=== PATIENT | male | born 1955 ===

== ENCOUNTER 2025-07-13 10:05 | Inpatient (IN) | payer OTHER, BC ==
[2025-07-13 10:16] VITALS: BMI 21.7
[2025-07-13 11:33] LABS: ABSOLUTE IMMATURE GRANULOCYTES 0.01 x10^3/uL (0.0-0.031); BASOPHILS # 0.03 x10^3/uL (0.01-0.08); EOSINOPHIL % 7.7 % (0.8-7.0); EOSINOPHILS # 0.38 x10^3/uL (0.04-0.54); MCHC 32.8 g/dl (32.3-36.5); MEAN CELL VOLUME 91.3 fl (79.0-92.2); MEAN PLT VOLUME 8.4 fl (9.4-12.4); MONOCYTE # 0.39 x10^3/uL (0.30-0.82); MONOCYTE % 7.9 % (5.3-12.2); RDW 13.0 % (12.2-16.6)
[2025-07-13 11:45] LABS: INR 1.17 (0.83-1.09); PROTHROMBIN TIME (PATIENT) 12.7 SEC (9.7-13.0)
[2025-07-13 11:47] LABS: ACTIVATED PTT 42.2 SECONDS (25.2-36.5)
[2025-07-13 12:33] LABS: ERYTHROCYTE SEDIMENTATION RATE 60 mm/hr (0-20)
[2025-07-13 12:52] LABS: ALK PHOS 119.0 U/L (40-150); CO2 28.0 mmol/L (21-32); CREATININE 0.53 mg/dL (0.55-1.3); GLUCOSE,RANDOM 173.0 mg/dL (74-106); SGOT/AST 15.0 U/L (5-34); SGPT/ALT 10.0 U/L (0-55); TOT PROT 6.4 g/dl (6.4-8.2)
[2025-07-13] MEDS ORDERED: ALBUTEROL SO4 2.5/IPRATROPIUM 0.5 INH SOL 3 ML VIAL.NEB. NEB PRN (14:45)
[2025-07-13] MEDS ORDERED: SENNOSIDES 8.6MG TABLET (FP) PO PRN (14:45)
[2025-07-13] MEDS: GABAPENTIN 300 MG CAPSULE PO SCH (16:36)
[2025-07-13] MEDS: BACLOFEN 10 MG TABLET (FP) PO SCH (18:17)
[2025-07-13] MEDS: ACETAMINOPHEN 325 MG TABLET (FP) PO PRN (18:20)
[2025-07-13] MEDS: MELATONIN 5 MG TABLETS PO SCH (21:27)
[2025-07-13] MEDS: traZODone HCL 50 MG TABLET (FP) PO SCH (21:27)
[2025-07-13] MEDS: MIRTAZAPINE 15 MG TABLET (FP) PO SCH (21:27)
[2025-07-13] MEDS: PREGABALIN 100 MG CAPSULE PO SCH (21:28)
[2025-07-14] MEDS ORDERED: LIDOCAINE HCL 1%, 10 MG/ML (20ML VIAL) ONE (07:32)
[2025-07-14] MEDS ORDERED: BUPIVACAINE HCL/PF 0.5% (5MG/ML) 10 ML VIAL ONE (07:33)
[2025-07-14] MEDS ORDERED: MIDAZOLAM HCL 2 MG/2 ML SINGLE DOSE VIAL ONE (07:52)
[2025-07-14] MEDS: LIDOCAINE HCL 1%, 10 MG/ML (20ML VIAL) INF ONE (08:00)
[2025-07-14] MEDS: BUPIVACAINE HCL/PF 0.5% (5MG/ML) 10 ML VIAL IJ ONE (08:00)
[2025-07-14 10:12] LABS: ABSOLUTE IMMATURE GRANULOCYTES 0.01 x10^3/uL (0.0-0.031); BASOPHILS # 0.04 x10^3/uL (0.01-0.08); EOSINOPHIL % 5.8 % (0.8-7.0); EOSINOPHILS # 0.22 x10^3/uL (0.04-0.54); MCHC 33.1 g/dl (32.3-36.5); MEAN CELL VOLUME 90.8 fl (79.0-92.2); MEAN PLT VOLUME 8.7 fl (9.4-12.4); MONOCYTE # 0.24 x10^3/uL (0.30-0.82); MONOCYTE % 6.4 % (5.3-12.2); RDW 12.8 % (12.2-16.6)
[2025-07-14 11:01] LABS: GLUCOSE,RANDOM 135.0 mg/dL (74-106)
[2025-07-14 11:03] LABS: CO2 30.0 mmol/L (21-32)
[2025-07-14 11:07] LABS: CREATININE 0.47 mg/dL (0.55-1.3)
[2025-07-14] MEDS ORDERED: SENNOSIDES 8.6MG TABLET (FP) PO PRN (11:30)
[2025-07-14] MEDS ORDERED: ALBUTEROL SO4 2.5/IPRATROPIUM 0.5 INH SOL 3 ML VIAL.NEB. NEB PRN (11:30)
[2025-07-14] MEDS: GABAPENTIN 300 MG CAPSULE PO SCH (14:38)
[2025-07-14] MEDS: BACLOFEN 10 MG TABLET (FP) PO SCH (14:38)
[2025-07-14] MEDS: ACETAMINOPHEN 325 MG TABLET (FP) PO PRN (15:05)
[2025-07-14] MEDS: CEFTRIAXONE 2 GM in DEXTROSE 5%-WATER 100 ML IVPB SCH (15:43)
[2025-07-14] MEDS: PREGABALIN 100 MG CAPSULE PO SCH (21:50)
[2025-07-14] MEDS: MELATONIN 5 MG TABLETS PO SCH (21:51)
[2025-07-14] MEDS: traZODone HCL 50 MG TABLET (FP) PO SCH (21:51)
[2025-07-14] MEDS: MIRTAZAPINE 15 MG TABLET (FP) PO SCH (21:51)
[2025-07-15 07:40] LABS: ABSOLUTE IMMATURE GRANULOCYTES 0.01 x10^3/uL (0.0-0.031); BASOPHILS # 0.05 x10^3/uL (0.01-0.08); EOSINOPHIL % 4.7 % (0.8-7.0); EOSINOPHILS # 0.23 x10^3/uL (0.04-0.54); MCHC 32.5 g/dl (32.3-36.5); MEAN CELL VOLUME 92.5 fl (79.0-92.2); MEAN PLT VOLUME 8.3 fl (9.4-12.4); MONOCYTE # 0.39 x10^3/uL (0.30-0.82); MONOCYTE % 8.0 % (5.3-12.2); RDW 13.0 % (12.2-16.6)
[2025-07-15 09:15] LABS: ALK PHOS 111.0 U/L (40-150); CO2 31.0 mmol/L (21-32); CREATININE 0.55 mg/dL (0.55-1.3); GLUCOSE,RANDOM 138.0 mg/dL (74-106); SGOT/AST 10.0 U/L (5-34); SGPT/ALT 9.0 U/L (0-55); TOT PROT 6.7 g/dl (6.4-8.2)
[2025-07-15] MEDS: AMINO ACIDS/PROTEIN HYDROLYS 30 ML LIQUID.PKT PO SCH (17:04)
[2025-07-16 07:59] LABS: ABSOLUTE IMMATURE GRANULOCYTES 0.01 x10^3/uL (0.0-0.031); BASOPHILS # 0.04 x10^3/uL (0.01-0.08); EOSINOPHIL % 5.2 % (0.8-7.0); EOSINOPHILS # 0.27 x10^3/uL (0.04-0.54); MCHC 32.0 g/dl (32.3-36.5); MEAN CELL VOLUME 91.8 fl (79.0-92.2); MEAN PLT VOLUME 8.7 fl (9.4-12.4); MONOCYTE # 0.43 x10^3/uL (0.30-0.82); MONOCYTE % 8.3 % (5.3-12.2); RDW 13.0 % (12.2-16.6)
[2025-07-16 08:42] LABS: GLUCOSE,RANDOM 131.0 mg/dL (74-106)
[2025-07-16 08:43] LABS: TOT PROT 6.6 g/dl (6.4-8.2)
[2025-07-16 08:45] LABS: ALK PHOS 108.0 U/L (40-150)
[2025-07-16 08:48] LABS: SGOT/AST 13.0 U/L (5-34); SGPT/ALT 7.0 U/L (0-55)
[2025-07-16 08:49] LABS: CREATININE 0.58 mg/dL (0.55-1.3)
[2025-07-16 08:51] LABS: CO2 24.0 mmol/L (21-32)
[2025-07-16] MEDS: LIDOCAINE HCL 1%, 10 MG/ML (20ML VIAL) SQ ONE (08:56)
[2025-07-16 09:16] VITALS: RESP 18
[2025-07-16] MEDS: ASCORBIC ACID 500 MG TABLET (FP) PO SCH (10:15)
[2025-07-16] MEDS: DOXYCYCLINE HYCLATE 100 MG TABLET PO SCH (18:12)
[2025-07-16] MEDS: CLOBETASOL PROPIONATE 15 GM OINTMENT TP SCH (21:49)
[2025-07-17 08:54] LABS: ABSOLUTE IMMATURE GRANULOCYTES 0.01 x10^3/uL (0.0-0.031); BASOPHILS # 0.05 x10^3/uL (0.01-0.08); EOSINOPHIL % 4.9 % (0.8-7.0); EOSINOPHILS # 0.22 x10^3/uL (0.04-0.54); MCHC 32.3 g/dl (32.3-36.5); MEAN CELL VOLUME 92.3 fl (79.0-92.2); MEAN PLT VOLUME 8.6 fl (9.4-12.4); MONOCYTE # 0.37 x10^3/uL (0.30-0.82); MONOCYTE % 8.2 % (5.3-12.2); RDW 13.1 % (12.2-16.6)
[2025-07-17 09:41] LABS: GLUCOSE,RANDOM 141.0 mg/dL (74-106)
[2025-07-17 09:42] LABS: TOT PROT 6.6 g/dl (6.4-8.2)
[2025-07-17 09:43] LABS: CO2 28.0 mmol/L (21-32)
[2025-07-17 09:44] LABS: ALK PHOS 107.0 U/L (40-150)
[2025-07-17 09:47] LABS: CREATININE 0.56 mg/dL (0.55-1.3)
[2025-07-17 10:25] LABS: SGOT/AST 14.0 U/L (5-34); SGPT/ALT 13.0 U/L (0-55)
[2025-07-17] MEDS: APIXABAN 5 MG TABLET PO SCH (21:49)
[2025-07-18 09:23] VITALS: BP 125/70; PULSE 76; TEMP 98.2
[2025-07-18] MEDS: COLLAGENASE CLOSTRIDIUM HIST. 30 GRAMS TUBE TP SCH (10:07)
[2025-07-18 11:04] LABS: ABSOLUTE IMMATURE GRANULOCYTES 0.02 x10^3/uL (0.0-0.031); BASOPHILS # 0.05 x10^3/uL (0.01-0.08); EOSINOPHIL % 3.1 % (0.8-7.0); EOSINOPHILS # 0.23 x10^3/uL (0.04-0.54); MCHC 32.7 g/dl (32.3-36.5); MEAN CELL VOLUME 91.4 fl (79.0-92.2); MEAN PLT VOLUME 9.1 fl (9.4-12.4); MONOCYTE # 0.44 x10^3/uL (0.30-0.82); MONOCYTE % 5.9 % (5.3-12.2); RDW 12.7 % (12.2-16.6)
[2025-07-18 11:25] LABS: GLUCOSE,RANDOM 163.0 mg/dL (74-106)
[2025-07-18 11:26] LABS: TOT PROT 7.0 g/dl (6.4-8.2)
[2025-07-18 11:27] LABS: CO2 24.0 mmol/L (21-32)
[2025-07-18 11:28] LABS: ALK PHOS 107.0 U/L (40-150)
[2025-07-18 11:31] LABS: CREATININE 0.54 mg/dL (0.55-1.3); SGOT/AST 14.0 U/L (5-34); SGPT/ALT 11.0 U/L (0-55)
== END 2025-07-18 16:08 | DRG 629 ==
LOC: JER 10:05 → JERBED 10:38 → J6S 14:40 → OBSVTOIN 07-14 14:25
PROVIDERS: ADMIT Internal Medicine; ATTEND Internal Medicine
PROC: 0QBN0ZX Excision of Right Metatarsal, Open Approach, Diagnostic (ICD-10-PCS; principal; 2025-07-15)
PROC: 05HY33Z Insertion of Infusion Device into Upper Vein, Percutaneous Approach (ICD-10-PCS; 2025-07-17)
DX: E11.69 Type 2 diabetes mellitus with other specified complication (principal); E44.0 Moderate protein-calorie malnutrition; G81.90 Hemiplegia, unspecified affecting unspecified side; M86.9 Osteomyelitis, unspecified; L12.0 Bullous pemphigoid; R53.2 Functional quadriplegia; L89.152 Pressure ulcer of sacral region, stage 2; E11.621 Type 2 diabetes mellitus with foot ulcer; I10 Essential (primary) hypertension; N31.9 Neuromuscular dysfunction of bladder, unspecified; Z68.20 Body mass index [BMI] 20.0-20.9, adult
CPT/HCPCS: 36415; 36569; 73610-TC-RT-FY; 73630-TC-RT-FY; 80048; 80053; 82962; 83735; 84100; 85025; 85610; 85651; 85730; 86140; 86850; 86900; 86901; 87040; 87070; 87075; 88305-TC; 93005; 93010; 99285-25; G0378; J0475; J0878